=== PATIENT | male | born 1970 | race Caucasian/White ===

== ENCOUNTER 2022-06-10 05:36 | Emergency (ER) | payer SELFPAY ==
[~2022-06-10] VITALS: Ht 170.2 cm; Wt 80.3 kg
[2022-06-10 06:05] VITALS: BP 103/68
--- NOTE | 2022-06-10 06:05 | NUR ---
to bed ambulatory
--- NOTE | 2022-06-10 06:10 | NUR ---
SEEN AND EXAMINED BY LEA
[2022-06-10] MEDS ORDERED: ALBUTEROL 0.083% 2.5 MG/3 ML NEBU INH ONE (06:20)
[2022-06-10] MEDS ORDERED: INHA1SPA24 MC (06:29)
[2022-06-10] MEDS ORDERED: ALBU0.0912 IH (06:29)
[2022-06-10] MEDS ORDERED: MUC600 PO (06:29)
--- NOTE | 2022-06-10 06:53 | NUR ---
PT MOVED TO ER CHAIR
--- NOTE | 2022-06-10 07:09 | NUR ---
RT CALLED FOR NEB TX
--- NOTE | 2022-06-10 07:18 | NUR ---
RT AT C FOR BREATHING TREATMENT.
--- NOTE | 2022-06-10 07:40 | NUR ---
DENIES CHEST PAIN OR SOB AT THIS TIME.VSS.
[2022-06-10 07:45] VITALS: BP 101/72
--- NOTE | 2022-06-10 07:45 | NUR ---
Patient discharged with v/s stable. Written and verbal after care instructions given and explained. Patient alert, oriented and verbalized understanding of instructions. Ambulatory with steady gait. All questions addressed prior to discharge. ID band removed. Patient advised to follow up with PMD. Rx of MUCINEX, PROVENTIL HFA, BREATHERITE SPACER-ADULT MASK given. Patient educated on indication of medication including possible reaction and side effects. Opportunity to ask questions provided and answered.
== END 2022-06-10 07:45 | disposition home or self-care (01) ==
LOC: MED 05:36
DX: J20.8 Acute bronchitis due to other specified organisms (principal); Z79.899 Other long term (current) drug therapy
CPT/HCPCS: 93005; 94640; 99283